=== PATIENT | male | born 1950 | race Caucasian/White ===

== ENCOUNTER 2017-12-27 15:32 | Emergency (ER) | payer MEDICARE ==
[2017-12-27 15:55] LABS: #Basophils 0.1 thou/uL (0.0-0.2); #Eosinphils 0.3 thou/uL (0.0-0.7); #Lymphocytes 1.7 thou/uL (1.20-3.40); #Neutrophils 7.7 thou/uL (1.40-6.50); %Basophils 0.5 % (0.0-1.0); %Eosinophils 2.7 % (0.0-10.0); %Lymphocytes 15.6 % (21.0-51.0); %Monocytes 9.5 % (0.0-10.0); %Neutrophils 71.8 % (42.0-75.0); Mean Corpuscular HGB CONC 33.9 g/dL (32.0-36.0); Mean Corpuscular Hemoglobin 33.8 pg (27.0-31.0); Mean Corpuscular Volume 99.9 fl (80.0-94.0); Mean Platelet Volume 6.7 fL (7.4-10.4); Platelet Count 285 thou/uL (130-400); RBC Distribution Width 12.5 % (11.5-14.5); Red Blood Cell (RBC) Count 5.03 mill/uL (4.70-6.10); White Blood Cell (WBC) Count 10.7 thou/uL (4.8-10.8)
--- NOTE | 2017-12-27 16:21 | RAD ---
PORTABLE CHEST ONE VIEW: Date: 12-27-17 Time: 4:11 p.m. History: Weakness, dizziness. FINDINGS: Comparison made with exam of 10-03-13. There is continued elevation of the left hemidiaphragm with mild scarring of the left lung base. No c onsolidation, pneumothorax, or pleural effusions are seen. There is no evidence of garfield pleural melvina a. The heart size is normal. There are changes of median sternotomy. IMPRESSION: No acute process. POS: [facility]
[2017-12-27 16:29] LABS: Troponin I Less than 0.010 ng/mL (< 0.028)
[2017-12-27 17:02] LABS: ALT (SGPT) 30 U/L (8-55); AST (SGOT) 23 U/L (5-34); Albumin 4.6 g/dL (3.4-4.8); Alkaline Phosphatase 43 U/L (40-150); Anion Gap 17 mmol/L (10-20); BUN (Urea Nitrogen) 15 mg/dL (8.4-25.7); Bilirubin, Total 0.7 mg/dL (0.2-1.2); CK (CPK) 128 U/L (30-200); Calc. Creatinine Clearance 0 mL/min (70-130); Carbon Dioxide 23 mmol/L (23-31); Chloride 101 mmol/L (98-107); Estimated GFR-MDRD 57; Globulin 2.6 g/dL (2.4-3.5); Glucose 86 mg/dL (80-115); Lipase 30 U/L (8-78); Protein, Total 7.2 g/dL (5.8-8.1); Sodium 137 mmol/L (136-145)
--- NOTE | 2017-12-27 17:08 | CT ---
CT OF HEAD NONCONTRAST 12/27/17 INDICATION: Headache, anxiety and dizziness. FINDINGS: Mild parenchymal volume loss is present and there is mild chronic microvascular ischemic disease. Skyler tricular system is mildly prominent. No intracranial hemorrhage, mass effect or midline shift. IMPRESSION: No acute intracranial abnormalities. Mild chronic microvascular ischemic disease and mild parenchymal volume loss. POS: [facility]
== END 2017-12-27 17:56 | disposition home or self-care (01) ==
LOC: ERS 15:32
DX: F41.9 Anxiety disorder, unspecified (principal); E11.9 Type 2 diabetes mellitus without complications; F32.9 Major depressive disorder, single episode, unspecified; I25.2 Old myocardial infarction; I25.10 Atherosclerotic heart disease of native coronary artery without angina pectoris; I10 Essential (primary) hypertension; Z79.84 Long term (current) use of oral hypoglycemic drugs; Z79.82 Long term (current) use of aspirin; Z79.899 Other long term (current) drug therapy
CPT/HCPCS: 70450; 71045; 80053; 82553; 83690; 84443; 84484; 85025; 86850; 86900; 86901; 93005

== ENCOUNTER 2019-05-05 19:07 | Emergency (ER) | payer MEDICARE ==
[2019-05-05 20:05] LABS: Bilirubin Negative (Negative); Blood, Urine Negative (Negative); Clarity Clear (Clear); Glucose, Urine (Dipstick) Negative (Negative); Leukocyte Negative (Negative); Nitrite Negative (Negative); Protein, Urine (Dipstick) Negative (Neg-Trace); Specific Gravity, Urine 1.021 (1.002-1.036)
--- NOTE | 2019-05-05 20:17 | CT ---
CT Stone Protocol History: Left lumbar pain and groin pain. Comparison: CT abdomen January 2016 Findings: Chronic elevation left hemidiaphragm. Mild compressive atelectasis left lung base. Diffuse hepatic steatosis. Large cyst in hepatic segment 6. Hypodense cyst inferior pole right kidney. The aortic contour is nonaneurysmal. No dilated loops of large or small bowel. The appendix is visualized and is normal. No nephro ureterolithiasis or hydroureteronephrosis. No secondary evidence of a recently passed stone . Small fat-containing left direct inguinal hernia. Advanced degenerative changes of the lower lumbar spine with degenerative disc space height loss and facet arthropathy. Noncontrast evaluation of the spleen pancreas and adrenal glands are unremarkable. No retroperitoneal periaortic adenopathy. Impression: 1. No nephroureterolithiasis or hydroureteronephrosis. No secondary evidence of a recently passed sto ne. 2. No acute inflammatory process within the abdomen or pelvis. 3. Diffuse hepatic steatosis. 4. Advanced degenerative changes of the lumbar spine. 5. Fat-containing left direct inguinal hernia.
[2019-05-05] MEDS ORDERED: traMADol HCl 50 MG TAB ONE (20:46)
== END 2019-05-05 21:03 | disposition home or self-care (01) ==
LOC: SCSER 19:07
DX: M54.16 Radiculopathy, lumbar region (principal); I25.2 Old myocardial infarction; E11.9 Type 2 diabetes mellitus without complications; I10 Essential (primary) hypertension; F32.9 Major depressive disorder, single episode, unspecified; Z79.84 Long term (current) use of oral hypoglycemic drugs; Z79.899 Other long term (current) drug therapy; Z79.82 Long term (current) use of aspirin
CPT/HCPCS: 74176; 81003